=== PATIENT | female | born 1970 | race Caucasian/White ===

== ENCOUNTER 2024-06-04 05:10 | Day surgery (SDC) | payer OTHER ==
[2024-05-31 16:47] VITALS: BMI 24.9
[2024-06-04 12:09] VITALS: BP 92/51; PULSE 68; RESP 16; TEMP 98
== END 2024-06-04 12:30 | disposition home or self-care (01) ==
LOC: JASU-ENDO 05:10
PROVIDERS: ATTEND Internal Medicine Gastroenterology
PROC: 0DJD8ZZ Inspection of Lower Intestinal Tract, Via Natural or Artificial Opening Endoscopic (ICD-10-PCS; principal; 2024-06-04 11:43)
DX: Z12.11 Encounter for screening for malignant neoplasm of colon (principal); K64.1 Second degree hemorrhoids